=== PATIENT | female | born 1945 | race Caucasian/White ===

== ENCOUNTER 2016-08-27 10:20 | Outpatient (CLI) | payer MEDICARE, OTHER ==
[~2016-08-27] VITALS: Ht 165.2 cm; Wt 81.8 kg
[2016-08-27] VITALS (7 sets, daily range): BP systolic 137–156; BP diastolic 76–93; PULSE 73–89; TEMP 98–98.2
[~2016-08-27 10:20] MED LIST: AMBIEN 10MG10 MG PO; BACTRIM DS 8001 TAB PO; CORDARONE200 MG/TAB PO; DESYREL 50MG50 MG PO; DIOVAN/HCT 12.51 TAB PO; DOXYCYCLINE 10100 MG PO; ELIQUIS 5MG PO; FOLIC ACID0.8 MG PO; HCTZ 25MG TAB25 MG PO; KLOR-CON M2020 MEQ PO; LASIX 40MG TABL40 MG PO; LEXAPRO20 MG PO; LOPRESSOR 550 MG/TAB PO; MAG-OX 400400 MG/TAB PO; MELATONIN3 M1 PO; MULTIPLE VITAMI1 CAP PO; PEPCID 20MG TAB20 MG PO; THIAMINE 1100 MG/TAB PO; TYLENOL 325MG325 MG PO; ZOCOR 20MG20 MG PO
[2016-08-27] MEDS ORDERED: XARELTO10 MG PO (10:55)
[2016-08-27] MEDS ORDERED: MULTIPLE VITAMI1 CAP PO (11:15)
[2016-08-27] MEDS ORDERED: DIOVAN 40MG40 MG PO (11:17)
== END 2016-08-27 14:50 | disposition home or self-care (01) ==
LOC: COL.RAD 10:20
DX: Z45.89 Encounter for adjustment and management of other implanted devices (principal); Z86.718 Personal history of other venous thrombosis and embolism
CPT/HCPCS: C1769; J2250; J3010; J7120; Q9967